=== PATIENT | female | born 1980 | race Caucasian/White ===

== ENCOUNTER 2018-10-30 16:11 | Emergency (ER) | payer OTHER, SELFPAY ==
[2018-10-30 16:12] VITALS: BP 168/131; PULSE 135; RESP 22; TEMP 36.9; O2SAT 100; BMI 32.2
--- NOTE | 2018-10-30 16:15 | ED.VISSUMM ---
- ER Visit Summary Date of Service: 10/30/18 Chief Complaint: Allergic reaction History of Present Illness: The patient is a 38 F who presents with an allergic reaction that began today just prior to arrival. Patient states she was drinking lemon water when she noted her ears for itching. Patient then noted some itching in her face and hands. Patient then noted some redness on her hands. Patient then states she felt like her voice was getting hoarse. Patient denies any difficulty breathing. Patient states her throat feels somewhat tight. Physical Examination: Vital signs are stable except for elevated blood pressure of 168/131 and a tachycardia of 135. Patient is afebrile. Patient is in no acute distress. Oromucosa is pink and moist. Oropharynx is clear. Airway is patent. Neck is supple. Trachea is midline. There is no JVD noted. Heart was regular and tachycardic. Lungs are clear and equal bilateral. Abdomen is soft and nontender. Cranial nerves II through XII are intact. There are no focal deficits noted. Skin is warm and dry. There is diffuse patchy urticaria noted. There are no vesicles or pustules noted. Emergency Department Course and Treatment: Patient was given IV fluids. Patient was given Solu-Medrol, Benadryl, and Pepcid IV. Patient states her itching and hives have improved. Patient complains of some nausea. Patient was given a dose of Zofran here. Patient was given a prescription for prednisone. Patient was also given a prescription for Zofran. Patient was instructed to take Benadryl as needed for any itching. Patient was instructed to follow-up with her primary care physician in 5 to 7 days. Patient understood and was agreeable with the plan. All questions were answered. Disposition: Discharge home Impression: Allergic reaction This note was generated with [employer] dictation software. It may contain incorrect words, spelling, and punctuation that were not noted in review of the chart prior to signing ED Disposition - Plan for ED Patient: Disposition: Home or Assisted Living Instructions: ED Allergic Reaction General Other Prescriptions: Ondansetron [Zofran Odt] 4 mg PO Q8H PRN PRN #10 tab PRN Reason: Nausea Prednisone [Deltasone] 60 mg PO DAILY #15 tab Referrals: Jeremy,Magnolia, [Primary Care Provider] -
[2018-10-30] MEDS: MethylPREDNISolone 125 MG/2 ML Vial IV (16:22)
[2018-10-30] MEDS: DiphenhydrAMINE 50 MG/ML Syringe 25 MG IV (16:22)
[2018-10-30 18:02] VITALS: BP 138/89; PULSE 99; RESP 20; O2SAT 93
[2018-10-30 19:00] VITALS: BP 154/93; PULSE 107; RESP 16; O2SAT 94
[2018-10-30 19:45] VITALS: BP 154/93; PULSE 107; RESP 16; O2SAT 94
== END 2018-10-30 19:47 | disposition home or self-care (01) ==
PROVIDERS: Emergency Provider Emergency Medicine; Family Provider Internal Medicine; PCP Internal Medicine
DX: L50.0 Allergic urticaria (principal); R11.0 Nausea; J02.9 Acute pharyngitis, unspecified; T78.40XA Allergy, unspecified, initial encounter; X58.XXXA Exposure to other specified factors, initial encounter
CPT/HCPCS: 96374; 96375; 99284; A4216; J2405; J3490

== ENCOUNTER 2019-05-28 16:55 | Outpatient (CLI) | payer OTHER, SELFPAY ==
[2019-05-20 06:44] VITALS: BMI 32.2
[2019-05-28 17:20] VITALS: BMI 32.3
--- NOTE | 2019-05-29 15:35 | OB.TRI.PN_ITS ---
Progress Notes Date of Service: 05/28/19 Progress Note: at 22w5d presented to to the ER for shortness of breath and then sent to labor and delivery due to increased blood pressure and headache. O: FHT 150 A: Shortness of breath P: 1) Patient to be seen in emergency room for shortness of breath and rule out pn eumonia
== END 2019-05-28 18:00 | disposition home or self-care (01) ==
LOC: WPOUT 17:01 → WP 17:02
PROVIDERS: Family Provider Internal Medicine; PCP Internal Medicine; Referring Provider Advanced Practice Midwife; Visit Provider Advanced Practice Midwife
DX: O26.899 Other specified pregnancy related conditions, unspecified trimester (principal); R06.02 Shortness of breath; R03.0 Elevated blood-pressure reading, without diagnosis of hypertension; R51 Headache; Z3A.00 Weeks of gestation of pregnancy not specified
CPT/HCPCS: 59050; 99218; G0378

== ENCOUNTER 2019-05-28 18:07 | Emergency (ER) | payer OTHER, SELFPAY ==
[2019-05-28 17:20] VITALS: BMI 32.3
[2019-05-28 18:08] VITALS: BP 160/95; PULSE 94; RESP 18; TEMP 36.6; O2SAT 96; BMI 32.1
--- NOTE | 2019-05-28 18:21 | ED.DCSUM_ITS ---
- ER Visit Summary Date of Service: 05/28/19 Chief Complaint: Shortness of breath and cough History of Present Illness: The patient is a 38 F who has had shortness of breath and cough for a week. At that time she tested positive for influenza B. Her shortness of breath and cough is gotten worse since then. She has been seeing her doctor yesterday put her on prednisone and azithromycin. She has been using her albuterol inhaler multiple times a day. She tried an albuterol aerosol yesterday but she states that made it worse and irritated her lungs. She is currently 22 weeks gestation. In triage her blood pressure was elevated so she went to OB triage and they monitored her there and sent her here for her medical work-up. She also has gestational diabetes. She has not had any fevers with this. Physical Examination: Vital signs reviewed. HEENT exam unremarkable. Heart is tachycardic and regular rhythm without murmurs. Lungs are clear to auscultation. Abdomen is soft and nontender. Extremities reveal no edema. Skin exam normal. Neurologic exam normal. Test Results: EKG is sinus rhythm with a rate of 90. No ST changes. White blood cell count 16.5. Potassium 5.5 with hemolysis. Troponin normal. D-dimer 0.49. Chest x-ray normal Emergency Department Course and Treatment: The patient appears in no distress. She is 96% on room air. Her work-up is fairly negative. I believe this is like ly a bronchitis causing all of the symptoms. I do not feel she needs any advanced imaging since her d-dimer was in the normal range. I will give her 1 dose of IV Solu-Medrol. With shared decision-making, the patient wishes to be treated as an outpatient does not want to stay in the hospital tonight. She has a follow-up appoint with her doctor on Sunday that she will go to. She will continue her home medications as prescribed by her PCP yesterday. Treatment Plan: [] Disposition: Discharge Impression: Bronchitis This note was generated with [email or web address] dictation software. It may contain incorrect words, spelling, and punctuation that were not noted in review of the chart prior to signing ED Disposition - Plan for ED Patient: Referrals: Magnolia Luna, [Primary Care Provider] -
--- NOTE | 2019-05-28 18:35 | RAD_ITS ---
STUDY: X-RAY CHEST REASON FOR EXAM: Female, 38 years old. Shortness of breath TECHNIQUE: PA and lateral views of the chest. COMPARISON: September 22, 2014 FINDINGS: The lungs are clear and expanded. There is no demonstrated pleural abnormality. Normal size heart. Normal mediastinum and aminta. Normal visualized pulmonary arteries. Normal visualized aortic arch and descending thoracic aorta. Normal visualized thoracic spine. Normal visualized ribs, clavicles, and shoulders. There is no demonstrated abnormality of the visualized soft tissue structures of the upper abdomen. RAD/Chest PA and Lateral IMPRESSION: Normal x-ray examination of the chest. Electronically Signed: Jamie Huang DO at 19:11 EST Tel , Service support ,
[2019-05-28 18:41] LABS: Absolute Lymphocyte Count 1.24 X10^3/uL (0.83-4.51); Absolute Neutrophil Count 14.8 X10^3/uL (2.0-7.7); Basophil# 0.02 X10^3/uL; Basophil% 0.1 % (0-1); Eosinophil# 0.02 X10^3/uL; Eosinophils% 0.1 % (0-5); Hematocrit 35.1 % (37-47); Hemoglobin 12.2 g/dL (12.0-15.0); Lymphocyte # 1.24 X10^3/ul (4.0); Lymphocyte % 7.5 % (19-41); Mean Corp Hgb Conc 34.8 g/dL (32-36); Mean Corpuscular Hgb 31.8 pg (27.0-32.0); Mean Corpuscular Volume 91.4 fL (81-99); Mean Platelet Vol. 9.8 fl (6.2-12.0); Monocyte% 1.8 % (0-10); NRBC Flagged by Analyzer 0 % (0-5); Neutrophil # 14.75 X10^3/uL (2.7-7.7); Neutrophil % 89.3 % (47-70); Platelet Count 241 K/mm3 (150-450); RBC Distribution Width CV 12.5 % (11.6-14.6); RBC Distribution Width SD 40.6 fl (35.1-43.9); Red Blood Count 3.84 M/mm3 (4.2-5.4); White Blood Count 16.5 K/mm3 (4.4-11.0)
[2019-05-28 19:00] LABS: Anion Gap 8 (5-15); BUN 5 mg/dL (7-18); BUN/Creat Ratio 9.1 RATIO (10-20); Calcium,Total 9.1 mg/dL (8.5-10.1); Chloride 110 mmol/L (98-107); Creatinine, Serum 0.55 mg/dL (0.55-1.02); D-Dimer Quantitative (DVT/PE) 0.49 FEU/ug/m (0.27-0.49); EST Glomerular Filtration Rate 132 mL/min (>60); Est Glom Filt Rate - Afr Amer 159 mL/min (>60); Estimated Creatinine Clearance 105.68 ml/min; Glucose 97 mg/dL (74-106); Potassium 5.5 mmol/L (3.5-5.1); Sodium Level 140 mmol/L (136-145)
--- NOTE | 2019-05-28 19:19 | EKG12_ITS ---
Test Reason : CHEST TIGHTNESS Blood Pressure : / mmHG Vent. Rate : 090 BPM Atrial Rate : 090 BPM P-R Int : 132 ms QRS Dur : 082 ms QT Int : 360 ms P-R-T Axes : 033 044 041 degrees QTc Int : 440 ms Normal sinus rhythm with sinus arrhythmia Normal ECG Confirmed by ROXANNE KING, FERNANDO ([id number]), field map editor MERVIN SIDDIQI ([id number]) on 05/30/2019 10:59:54 AM Referred By: TASIA Confirmed By:FERNANDO OLIVEIRA MD
--- NOTE | 2019-05-28 19:22 | ED.RN ---
NO OLD EKGS IN MUSE
--- NOTE | 2019-05-28 19:25 | ED.DEP ---
ED Disposition - Plan for ED Patient: Disposition: Home or Assisted Living Instructions: BRONCHITIS, No Antibiotic (Adult) Referrals: Magnolia Luna DO [Primary Care Provider] -
[2019-05-28] MEDS: MethylPREDNISolone 125 MG/2 ML Vial IV (19:33)
== END 2019-05-28 19:44 | disposition home or self-care (01) ==
PROVIDERS: Emergency Provider Emergency Medicine; Family Provider Internal Medicine; PCP Internal Medicine
DX: O99.512 Diseases of the respiratory system complicating pregnancy, second trimester (principal); J40 Bronchitis, not specified as acute or chronic; J45.909 Unspecified asthma, uncomplicated; O24.414 Gestational diabetes mellitus in pregnancy, insulin controlled; Z3A.22 22 weeks gestation of pregnancy
CPT/HCPCS: 71046; 80048; 84484; 85025; 85379; 93005; 96374; 99283; A4216

== ENCOUNTER 2019-08-05 10:35 | Outpatient (CLI) | payer OTHER, SELFPAY ==
[2019-08-05 11:12] VITALS: BMI 33.0
[2019-08-05 11:34] LABS: Hematocrit 33.4 % (37-47); Hemoglobin 11.5 g/dL (12.0-15.0); Mean Corp Hgb Conc 34.4 g/dL (32-36); Mean Corpuscular Hgb 30.7 pg (27.0-32.0); Mean Corpuscular Volume 89.3 fL (81-99); Mean Platelet Vol. 9.7 fl (6.2-12.0); Platelet Count 203 K/mm3 (150-450); RBC Distribution Width CV 12.5 % (11.6-14.6); RBC Distribution Width SD 40.7 fl (35.1-43.9); Red Blood Count 3.74 M/mm3 (4.2-5.4); White Blood Count 8.6 K/mm3 (4.4-11.0)
[2019-08-05 11:49] LABS: Prothrombin Time (Protime)PT. 12.9 SECONDS (11.7-14.9)
[2019-08-05 11:51] LABS: Partial Thromboplast Time 24.6 Seconds (24.1-36.2)
[2019-08-05 11:52] LABS: Protein, Urine (Random) 23.4 mg/dL (<11.9); Protein:Creat Ratio 205 mg/g CRE (0-200)
[2019-08-05 12:05] LABS: AST(SGOT) 6 U/L (15-37); Alanine Aminotransfer ALT/SGPT 10 U/L (13-56); EST Glomerular Filtration Rate 119 mL/min (>60); Est Glom Filt Rate - Afr Amer 144 mL/min (>60); Estimated Creatinine Clearance 96.87 ml/min; Uric Acid 4.3 mg/dL (2.6-6.0)
[2019-08-05] MEDS: Betamethasone/Betamethasone 30 MG/5 ML Vial 12 MG IM (12:55)
--- NOTE | 2019-08-05 20:57 | OB.TRI.NOTE ---
History of Present Illness Reason For Visit: RULE OUT PRE ECLAMPSIA Date of Service: 08/05/19 Final LICO: 09/26/19 Gestational age: 32 Weeks and 4 Days Allergies No Known Allergies Allergy (Verified 08/05/19 11:13) - Pertinent Past Medical History Medical History: Past Medical History (Last Reviewed 05/20/19 @ 06:43 by Steffanie James) Diabetes History of cholecystitis Surgical History: Past Surgical History (Last Reviewed 05/20/19 @ 06:44 by Steffanie James) History of appendectomy History of cholecystectomy Laboratory Studies: Laboratory Tests 08/05/19 08/05/19 08/05/19 Range/Units 11:15 11:15 11:15 WBC (4.4-11.0) K/mm3 RBC (4.2-5.4) M/mm3 Hgb (12.0-15.0) g/dL Hct (37-47) % MCV (81-99) fL MCH (27.0-32.0) pg MCHC (32-36) g/dL RDW Std Deviation (35.1-43.9) fl RDW Coeff of Yoli (11.6-14.6) % Plt Count (150-450) K/mm3 MPV (6.2-12.0) fl PT (11.7-14.9) SECONDS INR APTT (24.1-36.2) Seconds Creatinine 0.60 (0.55-1.02) mg/dL Estim Creat Clear Calc 96.87 ml/min Est GFR (MDRD) Af Amer 144 (>60) mL/min Est GFR (MDRD) Non-Af 119 (>60) mL/min Uric Acid Cancelled 4.3 (2.6-6.0) mg/dL AST 6 L (15-37) U/L ALT 10 L (13-56) U/L U Random Total Protein 23.4 H (<11.9) mg/dL Urine Creatinine 114.00 (NO RANGE EST.) mg/dL Protein/Creatinin Ratio 205 H (0-200) mg/g CRE 08/05/19 08/05/19 Range/Units 11:15 11:15 WBC 8.6 (4.4-11.0) K/mm3 RBC 3.74 L (4.2-5.4) M/mm3 Hgb 11.5 L (12.0-15.0) g/dL Hct 33.4 L (37-47) % MCV 89.3 (81-99) fL MCH 30.7 (27.0-32.0) pg MCHC 34.4 (32-36) g/dL RDW Std Deviation 40.7 (35.1-43.9) fl RDW Coeff of Yoli 12.5 (11.6-14.6) % Plt Count 203 (150-450) K/mm3 MPV 9.7 (6.2-12.0) fl PT 12.9 (11.7-14.9) SECONDS INR 1.0 APTT 24.6 (24.1-36.2) Seconds Creatinine (0.55-1.02) mg/dL Estim Creat Clear Calc ml/min Est GFR (MDRD) Af Amer (>60) mL/min Est GFR (MDRD) Non-Af (>60) mL/min Uric Acid (2.6-6.0) mg/dL AST (15-37) U/L ALT (13-56) U/L U Random Total Protein (<11.9) mg/dL Urine Creatinine (NO RANGE EST.) mg/dL Protein/Creatinin Ratio (0-200) mg/g CRE NST - FHR Rate Baby A Baseline: 145 Variability:: Moderate Accelerations:: 15 x 15 Decelerations:: Variable NST Reactive:: Yes Uterine Activity:: Irritability Impression/Plan Reactive NST for elevated BP in
== END 2019-08-05 13:15 | disposition home or self-care (01) ==
LOC: WPOUT 10:45 → WP 10:46
PROVIDERS: PCP Internal Medicine; Referring Provider Obstetrics & Gynecology; Visit Provider Obstetrics & Gynecology
DX: O26.893 Other specified pregnancy related conditions, third trimester (principal); R03.0 Elevated blood-pressure reading, without diagnosis of hypertension; O76 Abnormality in fetal heart rate and rhythm complicating labor and delivery; O24.913 Unspecified diabetes mellitus in pregnancy, third trimester; Z79.4 Long term (current) use of insulin; Z3A.32 32 weeks gestation of pregnancy
CPT/HCPCS: 36415; 59025; 59050; 82565; 82570; 84156; 84450; 84460; 84550; 85027; 85610; 85730; 96372; 99218; G0378; J0702

== ENCOUNTER 2019-08-06 12:16 | Outpatient (CLI) | payer OTHER, SELFPAY ==
[2019-08-05 11:12] VITALS: BMI 33.0
[2019-08-06 12:23] VITALS: BMI 33.5
[2019-08-06] MEDS: Betamethasone/Betamethasone 30 MG/5 ML Vial 12 MG IM (12:27)
--- NOTE | 2019-08-16 09:04 | OB.TRI.NOTE ---
History of Present Illness Reason For Visit: INJECTION Allergies No Known Allergies Allergy (Verified 08/06/19 12:25) - Pertinent Past Medical History Medical History: Past Medical History (Last Reviewed 05/20/19 @ 06:43 by Steffanie James) Diabetes History of cholecystitis Surgical History: Past Surgical History (Last Reviewed 05/20/19 @ 06:44 by Steffanie James) History of appendectomy History of cholecystectomy Impression/Plan Visit for betamethasone injection for elevated BP in
== END 2019-08-06 12:30 | disposition home or self-care (01) ==
LOC: LAB 12:17 → WP 12:18
PROVIDERS: PCP Internal Medicine; Referring Provider Obstetrics & Gynecology; Visit Provider Obstetrics & Gynecology
DX: O26.893 Other specified pregnancy related conditions, third trimester (principal); R03.0 Elevated blood-pressure reading, without diagnosis of hypertension; O24.919 Unspecified diabetes mellitus in pregnancy, unspecified trimester; Z3A.00 Weeks of gestation of pregnancy not specified
CPT/HCPCS: 96372; 99218; G0378; J0702

== ENCOUNTER 2019-08-25 14:20 | Outpatient (CLI) | payer OTHER, SELFPAY ==
[2019-08-25 14:45] VITALS: BMI 33.0
--- NOTE | 2019-08-25 19:08 | OB.TRI.NOTE ---
History of Present Illness Was patient seen by the physician?: No Reason For Visit: RULE OUT LABOR Date of Service: 08/25/19 Final LICO: 09/26/19 Gestational age: 35 Weeks and 3 Days Allergies No Known Allergies Allergy (Verified 08/25/19 15:19) - Pertinent Past Medical History Medical History: Past Medical History (Last Reviewed 05/20/19 @ 06:43 by Steffanie James) Diabetes History of cholecystitis Surgical History: Past Surgical History (Last Reviewed 05/20/19 @ 06:44 by Steffanie James) History of appendectomy History of cholecystectomy NST - FHR Rate Baby A Baseline: 145 Variability:: Moderate Accelerations:: 15 x 15 Decelerations:: Variable NST Reactive:: Yes Uterine Activity:: Irregular Impression/Plan Reactive NST for threatened PTL
== END 2019-08-25 17:40 | disposition home or self-care (01) ==
LOC: WPOUT 14:52 → WP 14:53 → OBT 15:44
PROVIDERS: PCP Internal Medicine; Referring Provider Obstetrics & Gynecology; Visit Provider Obstetrics & Gynecology
DX: O60.03 Preterm labor without delivery, third trimester (principal); O24.913 Unspecified diabetes mellitus in pregnancy, third trimester; O36.8330 Maternal care for abnormalities of the fetal heart rate or rhythm, third trimester, not applicable or unspecified; Z3A.35 35 weeks gestation of pregnancy; Z79.4 Long term (current) use of insulin
CPT/HCPCS: 59025; 59050; 99218; G0378

== ENCOUNTER 2019-09-05 07:05 | Inpatient (IN) | payer OTHER, SELFPAY ==
[2019-08-25 16:11] VITALS: BP 132/81; PULSE 95; TEMP 98.7
[2019-09-05] VITALS (51 sets, daily range): BP systolic 113–179; BP diastolic 11–105; PULSE 85–202; RESP 18; TEMP 36.4–37.3; O2SAT 81–100; BMI 33.6
--- NOTE | 2019-09-05 08:12 | HP.PCM_ITS ---
History Date of Admission: 09/05/19 Final LICO: 09/26/19 Gestational age: 37 Weeks and 0 Days History of this : This is a 38 year-old, G 6 para 2-1-2-3 at 37 weeks gestation-here for induction of labor due to advanced maternal age, polyhydramnios, GDM A2 to on insulin uncontrolled, GHTN Medical History: Medical History (Last Reviewed 05/20/19 @ 06:43 by Steffanie James) Diabetes E11.9 History of cholecystitis Z87.19 Surgical History: Surgical History (Last Reviewed 05/20/19 @ 06:44 by Steffanie James) History of appendectomy Z90.49 History of cholecystectomy Z90.49 Allergies Sulfa (Sulfonamide Antibiotics) Adverse Reaction (Verified 09/05/19 07:50) Rash Home Medications: Home Medications Buspirone HCl 25 mg PO DAILY 10/30/18 Citalopram [Celexa] 30 mg PO DAILY 10/30/18 aspirin 81 mg chewable tablet 81 mg PO DAILY 05/20/19 insulin syringe-needle U-100 0.3 mL 31 gauge x 15/64 See Rx Instructions .ROUTE .MEDSUPPLY #30 ea 05/20/19 Insulin NPH Human Isophane [Novolin N] 25 units SUBCUT BID 08/25/19 Smoking Status: Never smoker Alcohol: None Number of Fetus(es): 1 NST - FHR Rate Baby A Baseline: 140 Variability:: Moderate Accelerations:: 15 x 15 Decelerations:: None NST Reactive:: Yes FHR Category:: Category I Uterine Activity:: irregular History Past Pregnancies: Past Pregnancies Delivery Date Name GA/ Weeks Outcome Route Wt Sex Labor Length Anesthesia Delivery Location Provider FOB Labs: GBS neg Expected Infant Delivery Method: Review of Systems Constitutional: Denies: Anorexia Eyes: Denies: Blurred vision, Pain HEENT: Denies: Head Aches, Visual Changes Cardiovascular: Denies: Chest Pain Physical Exam General: Alert, Oriented x3 Abdomen: Soft, Non Tender, - - gravid. NO RUQ pain Neurological: Cranial nerves II-XII grossly intact LEVEL DESIGNER: Normal external genitalia Estimated gestational size: Appropriate for gestational size Presentation: Cephalic Cervix Dilation (cm): 3 Station: -2 Effacement (%): 80 Assessment/Plan All Active Problems (Last Reviewed 05/20/19 @ 06:43 by Steffanie James) Influenza B (Acute) This is a 38 year-old, @ 37 weeks, IOL for AMA, GDMA2 uncontrolled, Polyhydramnios, Gest HTN 1) Admit to L&D 2) monitor Fhr/toco 3) successful anticipated - pt counseled on risks and consent previously signed 4) epidural 5) pitocin. 6) monitor BPs- PRE E labs sent 7) monitor BS- start insulin drip if indicated
[2019-09-05] MEDS: Lactated Ringers 1,000 ML 50 ML IV (08:34)
[2019-09-05] MEDS: Oxytocin 30 units/NS 500 ml 30 UNITS/500 ML IV.SOLN IV (08:55)
[2019-09-05 08:57] LABS: Absolute Lymphocyte Count 1.87 X10^3/uL (0.83-4.51); Absolute Neutrophil Count 7.2 X10^3/uL (2.0-7.7); Basophil# 0.03 X10^3/uL; Basophil% 0.3 % (0-1); Eosinophil# 0.05 X10^3/uL; Eosinophils% 0.5 % (0-5); Hematocrit 32.5 % (37-47); Hemoglobin 10.8 g/dL (12.0-15.0); Lymphocyte # 1.87 X10^3/ul (4.0); Lymphocyte % 19.2 % (19-41); Mean Corp Hgb Conc 33.2 g/dL (32-36); Mean Corpuscular Hgb 29.6 pg (27.0-32.0); Mean Platelet Vol. 10.4 fl (6.2-12.0); Monocyte% 6.2 % (0-10); NRBC Flagged by Analyzer 0 % (0-5); Neutrophil # 7.17 X10^3/uL (2.7-7.7); Neutrophil % 73.5 % (47-70); Platelet Count 211 K/mm3 (150-450); RBC Distribution Width CV 13.1 % (11.6-14.6); RBC Distribution Width SD 42.1 fl (35.1-43.9); Red Blood Count 3.65 M/mm3 (4.2-5.4); White Blood Count 9.8 K/mm3 (4.4-11.0)
[2019-09-05 09:03] LABS: Partial Thromboplast Time 24.2 Seconds (24.1-36.2); Prothrombin Time (Protime)PT. 12.7 SECONDS (11.7-14.9)
[2019-09-05] MEDS: Lactated Ringers 500 ML 999 ML IV (09:09)
[2019-09-05 09:13] LABS: AST(SGOT) 10 U/L (15-37); Alanine Aminotransfer ALT/SGPT 9 U/L (13-56); Creatinine, Serum 0.71 mg/dL (0.55-1.02); EST Glomerular Filtration Rate 98 mL/min (>60); Est Glom Filt Rate - Afr Amer 118 mL/min (>60); Estimated Creatinine Clearance 81.86 ml/min; Uric Acid 5.1 mg/dL (2.6-6.0)
[2019-09-05 09:35] LABS: Bedside Glucose 102 mg/dL (70-110)
[2019-09-05] MEDS: fentaNYL-bupivacaine (epidural) 100 ML BAG EPIDURAL ×2 (10:12→14:18)
[2019-09-05 10:51] LABS: Protein, Urine (Random) 8.8 mg/dL (<11.9); Protein:Creat Ratio 135 mg/g CRE (0-200)
[2019-09-05 11:55] LABS: Bedside Glucose 81 mg/dL (70-110)
[2019-09-05] MEDS: 0.9% Saline Lock 10 ML Syringe IV (12:03)
[2019-09-05] MEDS: Ondansetron 4 MG/2 ML Vial IV (12:03)
[2019-09-05 12:06] LABS: Bedside Glucose 70 mg/dL (70-110)
--- NOTE | 2019-09-05 12:40 | PCM.PN.BLA ---
Progress Note pt seen at bedside, resting comfortably with Epidural in place. VE: 6/80/-2, continue Pitocin. Anticipate STROKE Vital Signs/Narrative: Vital Signs Temp Pulse Pulse Ox 09/05/19 11:56 97.7 F L 116 H 98 09/05/19 11:19 101 H 98 09/05/19 11:14 120 H 97 09/05/19 11:09 115 H 98 09/05/19 11:04 105 H 99 09/05/19 10:59 142 H 100 09/05/19 10:54 100 100 09/05/19 10:53 98.3 F 126 H 09/05/19 10:32 97.9 F 113 H 09/05/19 10:29 134 H 98 09/05/19 10:28 106 H 09/05/19 10:24 110 H 98 09/05/19 10:22 118 H 09/05/19 10:19 116 H 99 09/05/19 10:18 114 H 09/05/19 10:14 109 H 98 09/05/19 10:12 108 H 09/05/19 10:09 108 H 96 09/05/19 10:07 112 H 09/05/19 10:03 108 H 99 09/05/19 10:02 105 H 09/05/19 09:58 104 H 99 09/05/19 09:57 93 09/05/19 09:53 100 98 09/05/19 09:48 96 98 09/05/19 09:47 96 09/05/19 09:43 96 99 09/05/19 09:42 101 H 09/05/19 09:38 95 99 09/05/19 09:33 95 99 09/05/19 09:07 100 09/05/19 08:42 98.8 F 104 H 97
[2019-09-05 13:16] LABS: Bedside Glucose 59 mg/dL (70-110)
[2019-09-05 13:35] LABS: Bedside Glucose 81 mg/dL (70-110)
[2019-09-05] MEDS: Oxytocin 30 units/NS 500 ml 30 UNITS/500 ML IV.SOLN 334 UNITS IV (14:38)
--- NOTE | 2019-09-05 14:46 | PCM.OPRPT ---
Vaginal Delivery Maternal Presentation: Medically Indicated Induction Method of Induction: Pitocin, Amniotomy Medical Reason for Induction: Gestational Hypertension, - - GDMA2, AMA, Polyhydramnios Amniotic Membrane Rupture Type: Artificial Amniotic Fluid Description: Clear Final LICO: 09/26/19 Gestational age: 37 Weeks and 0 Days Date of Procedure: 09/05/19 Pre-Operative Diagnosis: Term gestation, GDMA2, Polyhydramnios, Gest HTN Post-Operative Diagnosis: same, live female Surgery/ Procedure Performed: Spontaneous Vaginal Delivery Type of Anesthesia: Epidural Description of Procedure: successful - of live female born without complication. 's head delivered then with gentle downward traction anterior shoulder was delivered without complication followed by the rest of infant's body. The infant was placed on the mother's chest for immediate skin the skin. Delayed cord clamping was performed. Placenta delivered intact and without complication. First-degree perineal laceration was noted and repaired with 3-0 rapide suture. Presentation: Vertex Placental Delivery Description: Spontaneous Cord Vessel Description: 3 Vessels Cord Entanglement: None Estimated Blood Loss: 200 Infant A gender: Female (1 minute): 8 (5 minute): 9 Episiotomy Description: None Laceration: Perineal Extension/lac - repaired with 3-0 rapide, 1st degree Medications given after delivery: IV Pitocin Complications: None
[2019-09-05] MEDS: Ibuprofen 600 MG Tablet PO ×2 (16:04→22:55)
[2019-09-05] MEDS: Senna/Docusate Sodium 1 Tablet PO (16:04)
[2019-09-05 16:56] LABS: Bedside Glucose 61 mg/dL (70-110)
[2019-09-05 17:21] LABS: Bedside Glucose 78 mg/dL (70-110)
[2019-09-05] MEDS: Acetaminophen 500 MG Tablet 1000 MG PO (18:55)
[2019-09-05 19:56] LABS: HIV - WCH Non-Reactive (Nonreactive)
[2019-09-05] MEDS: oxyCODONE 5 MG Tablet PO (20:35)
[2019-09-05] MEDS: busPIRone 5 MG Tablet 25 MG PO (22:41)
[2019-09-05] MEDS: Citalopram 20 MG Tablet 30 MG PO (22:42)
[2019-09-06] VITALS (7 sets, daily range): BP systolic 112–154; BP diastolic 63–91; PULSE 84–111; RESP 16–18; TEMP 36.6–37.3; O2SAT 95–96
[2019-09-06] MEDS: oxyCODONE 5 MG Tablet PO ×5 (01:08→23:48)
[2019-09-06] MEDS: Acetaminophen 500 MG Tablet 1000 MG PO ×2 (05:16→15:28)
[2019-09-06] MEDS: Labetalol 200 MG Tablet PO ×2 (06:49→18:28)
[2019-09-06] MEDS: Ibuprofen 600 MG Tablet PO ×3 (06:52→20:36)
[2019-09-06 07:06] LABS: Bedside Glucose 93 mg/dL (70-110)
--- NOTE | 2019-09-06 09:50 | PN.OBGYN_ITS ---
Subjective: Doing well per patient and nursing staff. Increased pelvic cramping, especially with . Back pain, using ice. Up out of bed to bathroom but has not eaten breakfast this am. BP mildly elevated, started on labetalol by this am. Has a little bit of dizziness this morning. Denies any headache, visual changes, chest pain, shortness of breath, increased vaginal bleeding or leg pain. . - Physical Exam Vitals/I&O's: Vital Signs Temp Pulse Resp BP Pulse Ox 97.8 F 84 16 147/91 H 96 09/06/19 05:07 09/06/19 06:48 09/06/19 05:07 09/06/19 06:48 09/06/19 05:07 Oxygen Delivery Method Room Air Weight: 178 lb 3.2 oz Body Mass Index (BMI) 33.6 Intake and Output for Last 24 Hours 09/04/19 09/05/19 09/06/19 23:59 23:59 23:59 Intake Total 1710.43 / 1710.43 Output Total 1100 / 1100 Balance 610.43 / 610.43 General: Alert, Oriented x3, Cooperative HEENT: Atraumatic, Normocephalic Neck: Trachea Midline Lungs: Clear to auscultation, Normal air movement, No rhonchi, No wheeze Cardiovascular: Regular rate, Regular Rhythm, No murmurs Abdomen: Bowel Sounds Present, Soft - Appropriately tender 3 below U Extremities: No edema - Megan's negative Neurological: Deep Tendon Reflexes 2+/4 and Symmetrical - No clonus Psych/Mental Status: Normal Affect, Appropriate Laboratory Results 09/05/19 08:30: Blood Type A POSITIVE, Antibody Screen NEGATIVE 09/05/19 10:30: U Random Total Protein 8.8, Urine Creatinine 65.40, Protein/Creatinin Ratio 135 09/05/19 10:36: POC Glucose 81 09/05/19 11:55: POC Glucose 70 09/05/19 12:59: POC Glucose 59 L 09/05/19 13:28: POC Glucose 81 09/05/19 16:45: POC Glucose 61 L 09/05/19 17:09: POC Glucose 78 09/05/19 18:50: HIV 1&2 Antibody Non-Reactive 09/06/19 06:56: POC Glucose 93 Current Medications Acetaminophen (Tylenol) 1,000 mg PO Q8H PRN PRN PRN Reason: Pain Score 1-3/10 Last Admin: 09/06/19 05:16 Dose: 1,000 mg Documented by: Bisacodyl (Dulcolax) 10 mg RECTAL UD PRN PRN Reason: If no BM Buspirone HCl (Buspar) 25 mg PO DAILY@2200 LIZZETTE Last Admin: 09/05/19 22:41 Dose: 25 mg Documented by: Citalopram Hydrobromide (Celexa) 30 mg PO DAILY@2200 LIZZETTE Dibucaine (Dibucaine) 1 applic TOPICAL TID PRN PRN; Protocol PRN Reason: Discomfort Hydrocortisone (Hytone) 1 applic TOPICAL TID PRN PRN; Protocol PRN Reason: Discomfort Ibuprofen (Motrin) 600 mg PO Q6H PRN PRN PRN Reason: Pain Score 1-3/10 Last Admin: 09/06/19 06:52 Dose: 600 mg Documented by: Labetalol HCl (Trandate) 200 mg PO Q12H [facility] Methylergonovine Maleate (Methergine) 0.2 mg IM X1 PRN PRN Reason: Excess bleeding/uterine atony Ondansetron HCl (Zofran) 4 mg IV Q4H PRN PRN PRN Reason: Nausea Oxycodone HCl (Oxyir) 5 - 10 mg PO Q4H PRN PRN PRN Reason: Pain Score 4-10/10 Last Admin: 09/06/19 08:51 Dose: 10 mg Documented by: Senna/Docusate Sodium (Senokot-S, Monika-Colace) 1 - 2 tablet PO DAILY PRN PRN PRN Reason: Constipation Last Admin: 09/05/19 16:04 Dose: 2 tablet Documented by: Simethicone (Mylicon) 80 mg PO PCHS PRN PRN Reason: Indigestion/Stomach pain Sodium Chloride () 5 - 15 ml IV UD PRN PRN Reason: SALINE FLUSH Medical Necessity - Tobacco Use Smoking Status: Former smoker Assessment/Plan All Active Problems (Last Reviewed 05/20/19 @ 06:43 by Steffanie James) Influenza B (Acute) A:PPD #1 Gestational HTN GDM Class A2 P: 1) Routine care 2) Reviewed course of uterine cramping, Kpad for relief. Taking Oxycodone, some relief. 3) Back pain, reviewed ice and heat rotation for pain, discussed getting up out of bed and sitting in chair 4) Labetalol started by for elevated BP, reviewed side effects. No signs of preeclampsia at this time. 5) Planning D/C home tomorrow.
[2019-09-06] MEDS: Senna/Docusate Sodium 1 Tablet PO (10:51)
--- NOTE | 2019-09-06 14:40 | CASEMGMT ---
Social Work Brief Assessment - Labor and Delivery Unit Refer documentation below for further details. Date of Referral/Notification: 09/06/2019 Time of Referral: 01:25 Reason for Referral: HISTORY OF ANXIETY AND DEPRESSION Date of Intervention: 09/06/2019 Time of Intervention: 14:40 Informant: Medical record and mother of baby (MOB) Assessment: MET WITH MOB AND FOB IN ROOM. INTRODUCED ROLE AND REASON FOR REFERRAL. MOB DISCUSSED MENTAL HEALTH HISTORY. MOB REPORTS IS WELL MANAGED ON MEDICATION FOR DEPRESSION AND ANXIETY AND FOLLOWS CLOSELY WITH DR. MCDANIELS. MOB REPORTS PARTICIPATED IN COUNSELING IN THE PAST AND IF NEEDED WOULD RETURN. MOB AND FOB REPORT HAVE ALL NEEDS MET FOR BABY GIRL, TATIANNA. MOB HAS GOOD SUPPORT FROM FOB AND FAMILY. PROVIDED EDUCATIONAL RESOURCES ON DEPRESSION AND REVIEWED WITH MOB. MOB DENIES ANY NEEDS UPON DISCHARGE. UPDATED MOB?S NURSE, FAIZAN. NURSING VOICES NO CONCERNS. Plan: HOME WITH RESOURCES PROVIDED. No further needs requested or indicated. -Mary Anne Salmeron, DEMO SPECIALIST, BROADCASTING EQUIPMENT MECHANIC
[2019-09-06] MEDS: Citalopram 20 MG Tablet 30 MG PO (22:16)
[2019-09-06] MEDS: busPIRone 5 MG Tablet 25 MG PO (22:16)
[2019-09-07 03:25] VITALS: BP 128/75; PULSE 88; RESP 16; TEMP 36.9; O2SAT 95
[2019-09-07] MEDS: Ibuprofen 600 MG Tablet PO ×2 (04:00→11:27)
[2019-09-07 06:24] VITALS: BP 141/74; PULSE 84
[2019-09-07] MEDS: Labetalol 200 MG Tablet PO (06:24)
[2019-09-07] MEDS: oxyCODONE 5 MG Tablet PO ×2 (07:58→12:03)
[2019-09-07] MEDS: Senna/Docusate Sodium 1 Tablet PO (07:59)
[2019-09-07 08:00] VITALS: BP 148/82; PULSE 85; RESP 18; TEMP 37.1
--- NOTE | 2019-09-07 10:51 | PN.OBGYN_ITS ---
Subjective: Doing well per patient and nursing staff. Ambulating and taking PO without difficulty. Voiding without difficulty. Feeling better today, pain more c ontrolled. . Denies any headache, visual changes, chest pain, shortness of breath,leg pain or increased vaginal bleeding. Planning D/C home today. - Physical Exam Vitals/I&O's: Vital Signs Temp Pulse Resp BP Pulse Ox 98.8 F 85 18 148/82 H 95 09/07/19 08:00 09/07/19 08:00 09/07/19 08:00 09/07/19 08:00 09/07/19 03:25 Oxygen Delivery Method Room Air Weight: 178 lb 3.2 oz Body Mass Index (BMI) 33.6 Intake and Output for Last 24 Hours 09/05/19 09/06/19 09/08/19 23:59 23:59 00:59 Intake Total 1710.43 / 1710.43 Output Total 1100 / 1100 Balance 610.43 / 610.43 General: Alert, Oriented x3, Cooperative HEENT: Atraumatic, Normocephalic Neck: Trachea Midline Lungs: Clear to auscultation, Normal air movement, No rhonchi, No wheeze Cardiovascular: Regular rate, Regular Rhythm, No murmurs Abdomen: Bowel Sounds Present, Soft - Fundus firm 3 below U, appopriately tender Extremities: No edema Neurological: Deep Tendon Reflexes 2+/4 and Symmetrical - No clonus. Megan's negative bilaterally Psych/Mental Status: Normal Affect, Appropriate Current Medications Acetaminophen (Tylenol) 1,000 mg PO Q8H PRN PRN PRN Reason: Pain Score 1-3/10 Last Admin: 09/06/19 15:28 Dose: 1,000 mg Documented by: Bisacodyl (Dulcolax) 10 mg RECTAL UD PRN PRN Reason: If no BM Buspirone HCl (Buspar) 25 mg PO DAILY@2200 LIZZETTE Last Admin: 09/06/19 22:16 Dose: 25 mg Documented by: Citalopram Hydrobromide (Celexa) 30 mg PO DAILY@2200 LIZZETTE Last Admin: 09/06/19 22:16 Dose: 30 mg Documented by: Dibucaine (Dibucaine) 1 applic TOPICAL TID PRN PRN; Protocol PRN Reason: Discomfort Hydrocortisone (Hytone) 1 applic TOPICAL TID PRN PRN; Protocol PRN Reason: Discomfort Ibuprofen (Motrin) 600 mg PO Q6H PRN PRN PRN Reason: Pain Score 1-3/10 Last Admin: 09/07/19 04:00 Dose: 600 mg Documented by: Labetalol HCl (Trandate) 200 mg PO Q12H LIZZETTE Last Admin: 09/07/19 06:24 Dose: 200 mg Documented by: Methylergonovine Maleate (Methergine) 0.2 mg IM X1 PRN PRN Reason: Excess bleeding/uterine atony Ondansetron HCl (Zofran) 4 mg IV Q4H PRN PRN PRN Reason: Nausea Oxycodone HCl (Oxyir) 5 - 10 mg PO Q4H PRN PRN PRN Reason: Pain Score 4-10/10 Last Admin: 09/07/19 07:58 Dose: 5 mg Documented by: Senna/Docusate Sodium (Senokot-S, Monika-Colace) 1 - 2 tablet PO DAILY PRN PRN PRN Reason: Constipation Last Admin: 09/07/19 07:59 Dose: 2 tablet Documented by: Simethicone (Mylicon) 80 mg PO PCHS PRN PRN Reason: Indigestion/Stomach pain Sodium Chloride () 5 - 15 ml IV UD PRN PRN Reason: SALINE FLUSH Medical Necessity - Tobacco Use Smoking Status: Former smoker Assessment/Plan All Active Problems (Last Reviewed 05/20/19 @ 06:43 by Steffanie James) Influenza B (Acute) A:PPD #2 Gestational HTN P: 1) Routine care and support 2) BP mildly elevated, continue Labetalol 200mg PO BID. Preeclampsia signs and symptoms reviewed. To follow up in 2 days for blood pressure check in office. Consulted and agrees with plan. 3) Pain management 4) Hemodynamically stable. 5) Discharge home
--- NOTE | 2019-09-07 11:32 | DCINST_ITS ---
Discharge Diet: No Restrictions Discharge Activity: Return to Normal Activity, May not drive while taking narcotic pain medications., May Shower, May Take a Tub Bath May resume sexual activity in: 4-6 weeks Weight Bearing Status: Full weight bearing Additional Activity Instructions:: Nothing in the vagina for 4-6 weeks. You may return to work/school in 6 weeks. Call your doctor if your incision/area has: Continuous Slow Oozing, Sudden Increased Bleeding, Increased Pain/ Swelling, Increased Redness, Foul Smelling Discharge Call your doctor if you observe: Fever of 101 or Higher, Inability to urinate, Inability to have a bowel movement, Using more than one pad per hour, Shortness of breath, Chest pain, Increased palpitations (irregular heartbeat), Calf discomfort, Uncontrolled pain Additional Instructions: If you experience any of the following, contact your healthcare provider. * Bleeding that soaks a pad every hour for 2 hours * Fever 100.4 or higher * Unrelieved incision or abdominal pain * Swelling, redness, discharge or bleeding from your incision or episiotomy site * Your incision begins to separate * Problems urinating (including inability to urinate or burning while urinating). * Visual changes * Severe headache * Flu-like symptoms * Pain or redness in one of both of your breasts * Pain, warmth, tenderness or swelling in your legs, especially the calf area * Frequent nausea and vomiting * Symptoms of depression or anxiety If you experience any of the following, call 911 or go to the nearest Emergency Room. * Chest pain * Problems breathing * Seizure activity * Partial or complete paralysis of a body part, slurred speech, weakness or drooping of the face, or a sudden inability to walk or hold your balance Allergies/Adverse Reactions: Allergies Sulfa (Sulfonamide Antibiotics) Allergy (Verified 09/05/19 15:06) Rash Medications to take at Discharge Buspirone HCl 25 mg PO DAILY 10/30/18 Citalopram [Celexa] 30 mg PO DAILY 10/30/18 Ibuprofen [Motrin] 600 mg PO Q6H PRN PRN #30 tablet 09/07/19 The following prescriptions were given: Ibuprofen [Motrin] 600 mg PO Q6H PRN PRN #30 tablet PRN Reason: Pain Score 1-3/10 Please Follow Up With: Susana Cadena MD When: Call to make an appointment with your doctor in 2 days for blood pressure check with physician and in 6 weeks. Please call office to make appointment Primary Care Physician: Magnolia Luna DO [Primary Care Provider] - Test Results: Test results from this visit will be discussed in further detail at your follow- up appointment, if applicable.
[2019-09-07 13:30] VITALS: BP 142/94; PULSE 93; RESP 16; TEMP 36.6
== END 2019-09-07 13:55 | disposition home or self-care (01) | DRG 807 ==
PROVIDERS: Pediatrics; Admitting Provider Obstetrics & Gynecology; PCP Internal Medicine; Referring Provider Obstetrics & Gynecology; Visit Provider Obstetrics & Gynecology
DX: O34.219 Maternal care for unspecified type scar from previous cesarean delivery (principal); Z37.0 Single live birth; N85.8 Other specified noninflammatory disorders of uterus; Z3A.37 37 weeks gestation of pregnancy; O40.9XX0 Polyhydramnios, unspecified trimester, not applicable or unspecified; O13.4 Gestational [pregnancy-induced] hypertension without significant proteinuria, complicating childbirth; O24.424 Gestational diabetes mellitus in childbirth, insulin controlled; O70.0 First degree perineal laceration during delivery; Z87.891 Personal history of nicotine dependence
CPT/HCPCS: 59050; 82565; 82570; 82962; 84156; 84450; 84460; 84550; 85025; 85610; 85730; 86703; 86850; 86900; 86901; 99218; J7120; A4216; G0378; J2405; J3490

== ENCOUNTER → 2020-04-19 13:59 | Outpatient (CLI) | payer OTHER, SELFPAY ==
[2019-09-05 07:43] VITALS: BMI 33.6
--- NOTE | 2020-04-19 14:01 | ECHOD_ITS ---
Reason For Study: ABN EKG Procedure This was a 2D Doppler, Color Flow transthoracic echocardiogram. The study was technically difficult. Exam performed in department. Left Ventricle Normal LV size. Left ventricular systolic function is normal. The estimated ejection fraction is 60 %. No evidence for diastolic dysfunction. No regional wall motion abnormalities noted. Right Ventricle Normal RV size. Normal systolic function. Atria Normal left atrium. Normal right atrium. No doppler evidence for ASD. Mitral Valve There is no mitral annular calcification. Normal mitral valve. Trivial mitral valve insufficiency. Tricuspid Valve Normal tricuspid valve. Trivial tricuspid valve insufficiency. Unable to estimate RV systolic pressure/pulmonary artery pressure due to technically difficult study. Aortic Valve The aortic valve is not well visualized. Pulmonic Valve The pulmonic valve is not well visualized. Great Vessels Normal sized aortic root. Pericardium/Pleural No pericardial effusion. MMode/2D Measurements & Calculations LVIDd: 4.4 cm IVSd: 0.72 cm Ao root diam: 2.8 cm LVIDs: 3.0 cm LVPWd: 0.90 cm RVDd: 2.6 cm FS: 32.2 % LAV(MOD-bp): 31.2 ml LA A4 area: 12.0 cm2 LA dimension(2D): 3.0 cm LAV(MOD-bp) Indexed: 17.7 ml/m2 LAV(MOD-sp2): 32.6 ml LAV(MOD-sp4): 25.2 ml RA A4 area: 12.1 cm2 Doppler Measurements & Calculations MV E max wilfredo: 72.8 cm/sec Lat Peak E' Wilfredo: 14.5 cm/sec Med Peak E' Wilfredo: 15.2 cm/sec MV A max wilfredo: 46.9 cm/sec E/E' lat: 5.0 E/E' med: 4.8 MV E/A: 1.6 Ao V2 max: 131.9 cm/sec LV V1 max: 103.7 cm/sec PA V2 max: 95.3 cm/sec Ao max P.0 mmHg LV V1 max P.3 mmHg Interpretation Summary The study was technically difficult. Left ventricular systolic function is normal. The estimated ejection fraction is 60 %. Trivial mitral valve insufficiency. Trivial tricuspid valve insufficiency. Unable to estimate RV systolic pressure/pulmonary artery pressure due to technically difficult study. No evidence for diastolic dysfunction. Ordering Physician: Magnolia Luna Referring Physician: Magnolia Luna Performed By: Aishwarya Baumann, BILL, RVT
== END ==
PROVIDERS: PCP Internal Medicine; Referring Provider Internal Medicine; Visit Provider Internal Medicine
DX: R94.31 Abnormal electrocardiogram [ECG] [EKG] (principal)
CPT/HCPCS: 93306

== ENCOUNTER 2021-07-14 14:20 | Emergency (ER) | payer OTHER, SELFPAY ==
[2021-07-14 14:22] VITALS: BP 180/110; PULSE 91; RESP 14; TEMP 36.6; O2SAT 95; BMI 34.5
--- NOTE | 2021-07-14 15:02 | EDS_ITS ---
HPI History of Present Illness Chief Complaint: Allergic Reaction Informant: patient Onset/Context/Timing Onset: Today Context: Sudden Onset Timing: Continuous Quality: Hives Location: Generalized Worsened by: Nothing Relieved by: Nothing Narrative Narrative: Patient presents with an allergic reaction that began today. Patient states that she cut a lemon and squeeze it into a glass of water. Patient states that after she drank this, she started breaking out into hives. Patient states she felt like her tongue was starting to swell up. Patient took 2 [id number] Benadryl tablets prior to arrival. Patient states she has had emily in the past without any difficulty. Patient states she did have 1 other episode in the past where she cut a lemon, squeezed into her water and drink it then developed hives. Patient states she has done this several times since the last time she developed hives from this without any reaction. Patient states she is currently on Cipro for urinary tract infection. Patient denies any allergies to Cipro. Patient admits to some mild shortness of breath but denies any difficulty swallowing. [facility] Medical History Diabetes History of cholecystitis Home Medications cephalexin 500 mg PO Q6 #12 capsule 07/14/21 [Rx Last Taken Unknown] prednisone 60 mg PO DAILY #12 tablet 07/14/21 [Rx Last Taken Unknown] Allergy/AdvReac Type Severity Reaction Status Date / Time Sulfa (Sulfonamide Allergy Rash Verified 07/14/21 14:25 Antibiotics) Surgical History History of appendectomy History of cholecystectomy Social History Smoking Status: Former smoker alcohol intake: never ROS ROS ED Constitutional Constitutional ED: Denies chills or fever(s) Eyes Eyes: Denies blurry vision or change in vision ENT ENT ED: Denies rhinorrhea or sore throat Cardiovascular Cardiovascular: Reports racing heartbeat; Denies chest pain or palpitations Respiratory/Chest Respiratory/Chest: Reports dyspnea; Denies cough Gastrointestinal Gastrointestinal: Denies nausea or vomiting Genitourinary Genitourinary ED: Denies dysuria or hematuria Musculoskeletal Musculoskeletal: Denies back pain or neck pain Integumentary Reports rash; Denies abscess Neurologic Neurologic: Denies headache(s) or weakness Allergic/Immunologic Allergic/Immunologic ED: Reports mouth swelling, tongue swelling and urticaria EXAM Physical Exam Const Vital Signs: 07/14/21 14:22 07/14/21 15:52 07/14/21 16:03 Temperature 97.9 F Temperature Source Temporal Pulse Rate 91 87 92 Respiratory Rate 14 14 19 H Blood Pressure 180/110 H 135/97 H Blood Pressure Mean 133 109 Pulse Ox 95 97 97 Oxygen Delivery Method Room Air Room Air Room Air Positive well nourished and well developed General Appearance ED: well developed HEENT Reports moist mucous membranes HEENT Narrative: Oropharynx is clear. Airway is patent. There is no edema of the oropharynx. Neck supple and no JVD Resp normal respiratory effort and clear to auscultation bilaterally Cardio regular rate, regular rhythm and no murmurs GI normal to inspection, nondistended, normoactive bowel sounds and non-tender Palpation: soft Extremity normal to inspection General Extremety ED: Negative for edema or tenderness General Extremity: Negative for edema Neuro oriented x3, CN's II-XII intact bilaterally and no sensory deficits noted Sensorium / Orientation: alert Motor Exam: strength 5/5 throughout Psych mental status grossly normal Skin Skin Narrative: There is diffuse patchy urticarial rash noted. There are no vesicles or pustules noted. There are no petechia noted. There is no involvement of the mucous membranes. MDM MDM MDM Narrative Medical decision making narrative: Patient took 50 mg of Benadryl prior to arrival. Patient was given Solu-Medrol and Pepcid here. Patient feels better on reevaluation. Patient was instructed to stop taking the Cipro. Patient was given a prescription for Keflex. Patient was given a prescription for prednisone. Patient was instructed to take Benadryl as needed for any itching. Patient was instructed return if worse in any way. Patient understood and was agreeable with the plan. All questions were answered. Discharge Plan Triage Chief Complaint: Allergic Reaction ED Provider: Shay Montano Dx/Rx/DC Orders Clinical Impression: Allergic reaction Instructions: ED General Allergic Reactions Prescriptions: New prednisone 20 MG tablet 60 mg PO DAILY Qty: 12 RF: 0 cephalexin [cephalexin] 500 MG capsule 500 mg PO Q6 Qty: 12 RF: 0 Primary Care Provider: Magnolia Luna Referrals: Magnolia Luna DO [Primary Care Provider] - 5-7 Days Disposition Disposition: Home, Self Care
[2021-07-14] MEDS: MethylPREDNISolone 125 MG/2 ML Vial 80 MG IV (15:20)
[2021-07-14] MEDS: Famotidine 200 MG/20 ML MDV 20 MG in 0.9% Normal Saline (Pres. free 8 ML 300 MG IV (15:25)
[2021-07-14 15:52] VITALS: BP 135/97; PULSE 87; RESP 14; O2SAT 97
[2021-07-14 16:03] VITALS: PULSE 92; RESP 19; O2SAT 97
== END 2021-07-14 16:14 | disposition home or self-care (01) ==
PROVIDERS: Emergency Provider Emergency Medicine; PCP Internal Medicine; Visit Provider Emergency Medicine
DX: T78.40XA Allergy, unspecified, initial encounter (principal); R06.02 Shortness of breath; Z87.891 Personal history of nicotine dependence; X58.XXXA Exposure to other specified factors, initial encounter
CPT/HCPCS: 96374; 96375; 99282; A4216; J3490

== ENCOUNTER 2021-12-07 09:45 | Emergency (ER) | payer OTHER, SELFPAY ==
[2021-12-07 09:47] VITALS: BP 169/112; PULSE 93; RESP 16; TEMP 36.3; O2SAT 95; BMI 32.1
--- NOTE | 2021-12-07 09:58 | EX.ED.DYSGE1 ---
HPI <ANDREA Marte - Last Filed: 12/07/21 10:59> History of Present Illness Chief Complaint: Allergic Reaction Narrative Narrative: 41-year-old female with no stated medical history presents the emergency department for allergic reaction. Patient takes Cipro after intercourse to prevent any urinary tract infections. Patient has taken 3 doses and has had itching, redness to her ears, lip swelling every time. She believes it was something else however this morning she took it at 9 AM, did not take anything else and at 920 she developed symptoms. Patient denies any shortness of breath however states she does have full body itching, especially her palms and soles. Patient also has slight lip swelling, patient states he took 50 of Benadryl at home and this did improve. She denies any difficulty swallowing. Patient is here for evaluation [facility] <ANDREA Marte - Last Filed: 12/07/21 10:59> [facility] Medical History Diabetes History of cholecystitis Home Medications cephalexin 500 mg PO Q6 #12 capsule 07/14/21 [Rx Last Taken Unknown] prednisone 60 mg PO DAILY #12 tablet 07/14/21 [Rx Last Taken Unknown] epinephrine [EpiPen] 0.3 mg IM Q15M PRN #2 ea 12/07/21 [Rx Last Taken Unknown] nitrofurantoin monohyd/m-cryst [Macrobid] 100 mg PO PRN PRN #7 cap 12/07/21 [Rx Last Taken Unknown] prednisone 50 mg PO DAILY #4 tab 12/07/21 [Rx Last Taken Unknown] Allergy/AdvReac Type Severity Reaction Status Date / Time ciprofloxacin [From Cipro] Allergy Intermediate Itching, Verified 12/07/21 09:59 lip swelling Sulfa (Sulfonamide Allergy Rash Verified 12/07/21 09:47 Antibiotics) Surgical History History of appendectomy History of cholecystectomy Social History Smoking Status: Former smoker alcohol intake: never ROS <ANDREA Marte - Last Filed: 12/07/21 10:59> ROS ED ROS Narrative Constitutional: Negative for fever, chills, weight loss, weakness Eyes: Negative for vision loss, vision change, double vision ENT: Negative for any sore throat, ear pain, congestion. Positive for lip swelling Cardiovascular: Negative for any chest pain, tightness, palpitations Respiratory: Negative for any cough, sputum production, hemoptysis, dyspnea, dyspnea on exertion, orthopnea Gastrointestinal: Negative for any abdominal pain, nausea, vomiting, diarrhea, constipation, blood in stool, blood in vomit : Negative for any urinary frequency, dysuria, retention, blood in urine Muscle skeletal: Negative for any muscle joint pain, stiffness, myalgias, arthralgias, neck pain, back pain Neurological: Negative for any headache, syncope, numbness or tingling, dizziness Skin: Negative for any rashes, lumps, abrasions, lacerations. Positive for itching to the hands, feet, head Psychiatric: Negative for any depression, anxiety, stress, suicidal ideation, homicidal ideation Hematologic: Negative for any easy bruising, excessive bruising, easy bleeding Allergies: Negative for any eczema, hives, rash EXAM <ANDREA Marte - Last Filed: 12/07/21 10:59> Physical Exam Narrative Exam Narrative: Vital signs reviewed. Positive for itching, patient is in no distress. Patient's vital signs are stable HEET: Head normocephalic atraumatic, TMs clear bilaterally. Posterior pharynx is clear, moist mucous membranes. Nares clear bilaterally. Negative for any stridor, negative for any drooling. Patient speaking in full sentences. Neck: Supple with no lymphadenopathy or tenderness. No signs of meningismus, negative jolt sign. Cardiac: Regular rate and rhythm no murmurs gallops or rubs, equal peripheral pulses bilaterally. Respiratory: Lungs clear to auscultation bilaterally. No chest tenderness. Abdomen: Soft, nontender, nondistended. No abdominal bruit or pulsatile masses. No hepatosplenomegaly Extremities: No peripheral edema, no signs of gross trauma or deformity. Active full range of motion of all extremities. Patient's hands are red, soles are red, patient does complain of itching. Neuro: Cranial nerves II through XII intact, no focal neurological deficits. Skin: Clean dry and intact with no rash, purpura, petechiae, vesicles or pustules. Backs/flank: No CVA tenderness, no midline spinal tenderness, no deformity. Psych: Normal mood and affect. No SI, HI or acute psychosis. Const Vital Signs: 12/07/21 09:47 12/07/21 10:25 12/07/21 11:02 Temperature 97.3 F L Temperature Source Temporal Pulse Rate 93 92 84 Respiratory Rate 16 16 16 Blood Pressure 169/112 H 159/101 H 152/96 H Blood Pressure Mean 131 120 Pulse Ox 95 96 97 Oxygen Delivery Method Room Air Room Air Positive well nourished and well developed General Appearance ED: well developed <Dr. Margareth Coelho DO - Last Filed: 12/07/21 14:44> Physical Exam Const Vital Signs: 12/07/21 09:47 12/07/21 10:25 12/07/21 11:02 Temperature 97.3 F L Temperature Source Temporal Pulse Rate 93 92 84 Respiratory Rate 16 16 16 Blood Pressure 169/112 H 159/101 H 152/96 H Blood Pressure Mean 131 120 Pulse Ox 95 96 97 Oxygen Delivery Method Room Air Room Air MDM <ANDREA Marte - Last Filed: 12/07/21 10:59> [facility] Narrative Medical decision making narrative: Patient appears well, patient appears nontoxic, vital signs are stable. Patient presents the emergency department with allergic reaction secondary to Cipro. Patient did have some itching, slight lip redness, no angioedema, respiratory symptoms. Patient was watched for 1 hour, she was given Pepcid, prednisone, after 1 hour, she looked much better, felt much better was much more relaxed. Patient will stop the Cipro, patient replaced on Macrobid, she will also be given 4 more days of prednisone. She is instructed to follow-up with her PCP, and to return if any worsening symptoms. Patient stable for discharge <Dr. Margareth Coelho DO - Last Filed: 12/07/21 14:44> [facility] Narrative Medical decision making narrative: I have personally performed a face to face assessment of the patient and have reviewed the JANNETTE Note. I performed a substantive portion of the visit including all aspects of the following. My waterman findings include: History is patient is a 41-year-old female with history of frequent urinary tract infections currently on postcoital antibiotic prophylaxis with ciprofloxacin. She states she has taken this medication in the past and she recently was here for an allergic reaction but did not think it was from the Cipro. She took the Cipro about 30 minutes prior to arrival and then 15 minutes afterwards developed sensation of swelling in her mouth and itching on her hands and feet. She took 50 mg of Benadryl and then came to the emergency room for further evaluation. She currently denies any difficulty breathing, wheezing, or rash or GI symptoms. No other new exposures, foods or new medications. Exam is Patient is well-appearing but anxious. Normocephalic atraumatic. Moist mucosal membranes. No angioedema appreciated. Normal phonation. Oral mucosa is normal-appearing. Normal oropharynx. No stridor on exam. Lungs are clear to auscultation bilaterally with no wheezing. Heart regular rate and rhythm. Abdomen soft and nontender. Patient has some mild erythema of the palms of her hands however there is no edema of the hands appreciated. No urticaria or other rash appreciated. Normal neurologic exam with no focal neurologic deficits. Normal muscle tone throughout. Medical Decision Making Suspect patient is having an allergic reaction to the ciprofloxacin. She took Benadryl prior to arrival. This is not anaphylaxis and I do not think she requires epinephrine at this time. Is started on prednisone and Pepcid. We will continue take Benadryl as needed for symptoms. She is given a prescription for an EpiPen in case she has a more severe reaction at home. Patient is taken off her empiric Cipro and started on Keflex instead. She is encouraged to follow-up with her primary care doctor. Counseled return precautions. Patient discharged home in stable and improved condition. She is monitored for 1 hour and has no worsening allergic symptoms. Other additions or changes: [None] Discharge Plan Triage Chief Complaint: Allergic Reaction ED Midlevel Provider: Memo Cabezas ED Provider: Margareth Coelho Dx/Rx/DC Orders Clinical Impression: Allergic reaction Instructions: ED Allergic Reaction Local Other Prescriptions: New nitrofurantoin monohyd/m-cryst [Macrobid] 100 mg capsule 100 mg PO PRN PRN (Reason: Urinary tract infection) Qty: 7 RF: 0 prednisone 50 mg tablet 50 mg PO DAILY Qty: 4 RF: 0 epinephrine [EpiPen] 0.3 mg/0.3 mL auto-injector 0.3 mg IM Q15M PRN (Reason: anaphylaxis) Qty: 2 RF: 0 No Action prednisone 20 MG tablet 60 mg PO DAILY Qty: 12 RF: 0 cephalexin [cephalexin] 500 MG capsule 500 mg PO Q6 Qty: 12 RF: 0 Primary Care Provider: Magnolia Luna Referrals: Magnolia Luna DO [Primary Care Provider] - Activity Restrictions/Additional Instructions: Please try the Macrobid. Follow-up with your PCP Print Language: Ukrainian Disposition Disposition: Home, Self Care Discharge Date/Time: 12/07/21 11:04
[2021-12-07] MEDS: Famotidine 20 MG Tablet 40 MG PO (10:00)
[2021-12-07] MEDS: predniSONE 20 MG Tablet 60 MG PO (10:00)
[2021-12-07 10:25] VITALS: BP 159/101; PULSE 92; RESP 16; O2SAT 96
[2021-12-07 11:02] VITALS: BP 152/96; PULSE 84; RESP 16; O2SAT 97
== END 2021-12-07 11:04 | disposition home or self-care (01) ==
PROVIDERS: Emergency Provider Emergency Medicine; PCP Internal Medicine; Visit Provider Emergency Medicine
DX: L53.9 Erythematous condition, unspecified (principal); E11.9 Type 2 diabetes mellitus without complications; T36.8X5A Adverse effect of other systemic antibiotics, initial encounter; Z87.891 Personal history of nicotine dependence
CPT/HCPCS: 99283

== ENCOUNTER 2022-03-08 17:26 | Emergency (ER) | payer OTHER, SELFPAY ==
[2022-03-08 17:27] VITALS: BP 178/112; PULSE 91; RESP 20; TEMP 36.8; O2SAT 99; BMI 31.0
--- NOTE | 2022-03-08 18:10 | EKG12_ITS ---
Test Reason : CHEST TIGHTNESS Blood Pressure : / mmHG Vent. Rate : 096 BPM Atrial Rate : 096 BPM P-R Int : 128 ms QRS Dur : 084 ms QT Int : 358 ms P-R-T Axes : 047 045 062 degrees QTc Int : 452 ms Normal sinus rhythm with sinus arrhythmia Normal ECG Confirmed by JOVANA KING, ENRIQUE ([id number]), web editor EDSON PRABHAKAR ([id number]) on 03/10/2022 10:01:41 AM Referred By: PURA Confirmed By:JULIO WHALEY MD
--- NOTE | 2022-03-08 18:13 | EX.ED.DYSGE1 ---
HPI History of Present Illness Chief Complaint: Chest Pain Informant: patient Narrative Narrative: Patient states that she had a URI type symptoms at the beginning of January. She had runny nose sore throat. She had slight nonproductive cough. She saw her doctor in the middle of January. She was still having a little tightness in the chest. She was given a short course of prednisone which normally helps this. But she states it just did not do anything. She does have a history of occasional asthma but it is usually only when she is ill. She has not been hearing wheezing with this at this time. She just keeps getting a little tightness across her chest mostly when she is in air conditioning. She has an occasional dry cough. No syncope presyncope. No hemoptysis. She has no recent travel surgery immobilization personal or family history of DVT or PE. She is on no control or hormonal therapy. No leg pain or swelling. She contacted her physician who referred her in to see us today. She would not be able to be seen in the office till Sunday. [facility] Medical History Diabetes History of cholecystitis Home Medications cephalexin 500 mg capsule 500 mg PO Q6 #12 CAPSULES 07/14/21 [Rx Last Taken Unknown] prednisone 20 mg tablet 60 mg PO DAILY #12 TABLETS 07/14/21 [Rx Last Taken Unknown] epinephrine 0.3 mg/0.3 mL injection, auto-injector (EpiPen) 0.3 mg (0.3 mL) IM Q15M PRN anaphylaxis #2 ea 12/07/21 [Rx Last Taken Unknown] nitrofurantoin monohydrate/macrocrystals 100 mg capsule (Macrobid) 100 mg PO PRN PRN Urinary tract infection #7 caps 12/07/21 [Rx Last Taken Unknown] prednisone 50 mg tablet 50 mg PO DAILY #4 tabs 12/07/21 [Rx Last Taken Unknown] albuterol sulfate 2.5 mg/3 mL (0.083 %) solution for nebulization 2.5 mg (3 mL) inhalation Q4H PRN #25 vials 03/08/22 [Rx Last Taken Unknown] Allergy/AdvReac Type Severity Reaction Status Date / Time ciprofloxacin [From Cipro] Allergy Intermediate Itching, Verified 03/08/22 17:27 lip swelling Sulfa (Sulfonamide Allergy Rash Verified 03/08/22 17:27 Antibiotics) Surgical History History of appendectomy History of cholecystectomy Social History Smoking Status: Former smoker alcohol intake: never ROS ROS ED Constitutional Constitutional ED: Denies chills, fever(s) or subjective Eyes Eyes: Denies change in vision ENT ENT ED: Reports other Details: Sore throat and rhinorrhea are now gone. ; Denies rhinorrhea or sore throat Cardiovascular Cardiovascular: Reports other Details: Intermittent tight feeling across the chest. See history of present illness peer Respiratory/Chest Respiratory/Chest: Reports cough and dyspnea Gastrointestinal Gastrointestinal: Denies abdominal pain, nausea or vomiting Genitourinary Genitourinary ED: Denies dysuria Musculoskeletal Musculoskeletal: Denies arthralgias or myalgias Neurologic Neurologic: Denies weakness Psychiatric Psychiatric: Denies anxiety Endocrine Endocrinology: Denies polydipsia or polyuria Hematologic/Lymphatic Hematologic/Lymphatic: Denies easy bleeding, easy bruising or lymphadenopathy Allergic/Immunologic Allergic/Immunologic ED: Denies urticaria EXAM Physical Exam Const Vital Signs: 03/08/22 17:27 03/08/22 18:26 03/08/22 18:21 Temperature 98.2 F Temperature Source Temporal Pulse Rate 91 92 100 Respiratory Rate 20 H 14 16 Respiratory Effort Respiratory Depth Respiratory Pattern Normal Blood Pressure 178/112 H 138/78 H Blood Pressure Mean 134 98 Pulse Ox 99 98 Oxygen Delivery Method Room Air Room Air 03/08/22 18:21 Temperature Temperature Source Pulse Rate Respiratory Rate 16 Respiratory Effort Normal Short of Breath Respiratory Depth Normal Respiratory Pattern Normal Blood Pressure Blood Pressure Mean Pulse Ox 96 Oxygen Delivery Method Room Air Positive well nourished and well developed General Appearance ED: well developed and NAD; Negative for pallor HEENT Reports moist mucous membranes HEENT Narrative: No intraoral lesions. No exudate. Eyes General Eye ED: Negative for scleral icterus Neck supple and no JVD Neck Narrative: No stridor Chest Wall inspection of chest normal Resp normal respiratory effort and clear to auscultation bilaterally Resp Narrative: I do not hear any wheezes or rhonchi. Deep breaths do make a slight cough but no notable pain. Cardio regular rate and regular rhythm GI normal to inspection, nondistended, normoactive bowel sounds and non-tender Back/Spine no CVA tenderness Extremity normal to inspection General Extremety ED: Negative for edema or tenderness General Extremity: Negative for edema Neuro Sensorium / Orientation: alert Skin no rashes or lesions noted General Skin Exam: Negative for pallor MDM MDM MDM Narrative Medical decision making narrative: Patient is PERC negative and has a negative D-dimer. CBC was normal other than minimal elevation of white count. This might even be left over from the steroid burst she had. Electrolytes are normal. Troponins negative. is negative. Single view chest x-ray looked at by me shows no sign of infiltrate pneumothorax or mass. Patient's recheck. She felt that the breathing treatment helped her significantly. She has a nebulizer at home but has no meds for it. I will write for some meds for this and she will follow-up with her primary physician. She is good with this plan. Lab Data Attestation: I reviewed the patient's lab results. Labs: Laboratory Results - last 24 hr 03/08/22 03/08/22 03/08/22 18:20 18:20 18:20 WBC 11.6 H RBC 5.11 Hgb 15.7 H Hct 45.9 MCV 89.8 MCH 30.7 MCHC 34.2 RDW Std Deviation 38.3 RDW Coeff of Yoli 11.8 Plt Count 269 MPV 10.0 Immature Gran % (Auto) 0.300 Neut % (Auto) 65.4 Lymph % (Auto) 27.3 [place] % (Auto) 5.4 Eos % (Auto) 1.2 Baso % (Auto) 0.4 Absolute Neuts (auto) 7.6 Absolute Lymphs (auto) 3.17 Nucleated RBC % 0 D-Dimer Quant (PE/DVT) 0.30 Sodium 139 Potassium 4.2 Chloride 105 Carbon Dioxide 26.0 Anion Gap 8 BUN 9 Creatinine 0.91 Estim Creat Clear Calc 62.01 Est GFR (MDRD) Af Amer 88 Est GFR (MDRD) Non-Af 73 BUN/Creatinine Ratio 9.9 L Glucose 106 Calcium 9.6 Troponin I High Sens 3 Serum , Qual 03/08/22 18:20 WBC RBC Hgb Hct MCV MCH MCHC RDW Std Deviation RDW Coeff of Yoli Plt Count MPV Immature Gran % (Auto) Neut % (Auto) Lymph % (Auto) [place] % (Auto) Eos % (Auto) Baso % (Auto) Absolute Neuts (auto) Absolute Lymphs (auto) Nucleated RBC % D-Dimer Quant (PE/DVT) Sodium Potassium Chloride Carbon Dioxide Anion Gap BUN Creatinine Estim Creat Clear Calc Est GFR (MDRD) Af Amer Est GFR (MDRD) Non-Af BUN/Creatinine Ratio Glucose Calcium Troponin I High Sens Serum , Qual NEGATIVE Discharge Plan Triage Chief Complaint: Chest Pain ED Provider: Mauricio Armenta Dx/Rx/DC Orders Clinical Impression: Bronchospasm Instructions: ED Bronchospasm (Adult) Prescriptions: New albuterol sulfate 2.5 mg /3 mL (0.083 %) solution for nebulization 2.5 mg inhalation Q4H PRN Qty: 25 2RF Rx Instructions: Use q4 hours and PRN for wheezing No Action prednisone 20 MG tablet 60 mg PO DAILY Qty: 12 0RF cephalexin [cephalexin] 500 MG capsule 500 mg PO Q6 Qty: 12 0RF nitrofurantoin monohyd/m-cryst [Macrobid] 100 mg capsule 100 mg PO PRN PRN (Reason: Urinary tract infection) Qty: 7 0RF Rx Instructions: Please take 1 capsule after sexual intercourse prednisone 50 mg tablet 50 mg PO DAILY Qty: 4 0RF epinephrine [EpiPen] 0.3 mg/0.3 mL auto-injector 0.3 mg IM Q15M PRN (Reason: anaphylaxis) Qty: 2 0RF Primary Care Provider: Magnolia Luna Referrals: Magnolia Luna DO [Primary Care Provider] - 3-5 Days Disposition Disposition: Home, Self Care
[2022-03-08 18:21] VITALS: PULSE 100; RESP 16; O2SAT 96
[2022-03-08] MEDS: Ipratropium/Albuterol Sulfate 3 ML AMPUL.NEB INHALATION (18:21)
[2022-03-08 18:26] VITALS: BP 138/78; PULSE 92; RESP 14; O2SAT 98
--- NOTE | 2022-03-08 18:27 | CPS ---
Pt. refuses Covid-19 PCR testing; Dr. Armenta notified
[2022-03-08 18:29] LABS: Absolute Lymphocyte Count 3.17 X10^3/uL (0.83-4.51); Absolute Neutrophil Count 7.6 X10^3/uL (2.0-7.7); Basophil# 0.05 X10^3/uL; Basophil% 0.4 % (0-1); Eosinophil# 0.14 X10^3/uL; Eosinophils% 1.2 % (0-5); Hematocrit 45.9 % (37-47); Hemoglobin 15.7 g/dL (12.0-15.0); Lymphocyte # 3.17 X10^3/ul (0.83-4.51); Lymphocyte % 27.3 % (19-41); Mean Corp Hgb Conc 34.2 g/dL (32-36); Mean Corpuscular Hgb 30.7 pg (27.0-32.0); Mean Corpuscular Volume 89.8 fL (81-99); Monocyte# 0.63 X10^3/uL; Monocyte% 5.4 % (0-10); NRBC Flagged by Analyzer 0 % (0-5); Neutrophil % 65.4 % (47-70); Platelet Count 269 K/mm3 (150-450); RBC Distribution Width CV 11.8 % (11.6-14.6); RBC Distribution Width SD 38.3 fl (35.1-43.9); Red Blood Count 5.11 M/mm3 (4.2-5.4); White Blood Count 11.6 K/mm3 (4.4-11.0)
[2022-03-08 18:52] LABS: Anion Gap 8 (5-15); BUN 9 mg/dL (7-18); BUN/Creat Ratio 9.9 RATIO (10-20); Calcium,Total 9.6 mg/dL (8.5-10.1); Chloride 105 mmol/L (98-107); Creatinine, Serum 0.91 mg/dL (0.55-1.02); EST Glomerular Filtration Rate 73 mL/min (>60); Est Glom Filt Rate - Afr Amer 88 mL/min (>60); Estimated Creatinine Clearance 62.01 ml/min; Glucose 106 mg/dL (74-106); Potassium 4.2 mmol/L (3.5-5.1); Sodium Level 139 mmol/L (136-145); Troponin-I HS 3 pg/mL (3.0-54.0)
--- NOTE | 2022-03-08 18:53 | RAD_ITS ---
STUDY: AP PORTABLE UPRIGHT CHEST X-RAY OF 1853 HOURS ON 03/08/2022 REASON FOR EXAM: 41-year-old female with cough and chest tightness. TECHNIQUE: A single view AP portable upright chest x-ray was performed per protocol. COMPARISON: 05/28/2019. FINDINGS: Normal osseous structures. No cardiomegaly or heart failure. No pulmonary infiltrates, atelectasis, effusion, or pulmonary mass lesions. No pneumonia, pneumonitis, bronchitis. No interval change since a previous study of 05/28/2019. RAD/Chest 1 View (Portable) IMPRESSION: 1. No active cardiopulmonary disease. 2. No interval change since the previous study of 05/28/2019. Electronically Signed: Emile Crystal MD at 20:40 EDT ,
[2022-03-08 18:55] LABS: Internal QC Validated? YES +Cl - CLEAR BKGD; Pregnancy, Serum, hCG Quali. NEGATIVE Negative
[2022-03-08 20:17] VITALS: BP 126/78; PULSE 78; RESP 16; TEMP 37.2; O2SAT 97
== END 2022-03-08 20:18 | disposition home or self-care (01) ==
PROVIDERS: Emergency Provider Emergency Medicine; PCP Internal Medicine; Visit Provider Emergency Medicine
DX: J98.01 Acute bronchospasm (principal); E11.9 Type 2 diabetes mellitus without complications; Z87.891 Personal history of nicotine dependence; Z87.19 Personal history of other diseases of the digestive system; Z79.52 Long term (current) use of systemic steroids
CPT/HCPCS: 71045; 80048; 84484; 84703; 85025; 85379; 93005; 94640; 99251; 99285; A4216; G0463

== ENCOUNTER → 2022-11-15 | Outpatient (CLI) | payer OTHER, SELFPAY ==
--- NOTE | 2022-11-15 13:03 | CT_ITS ---
STUDY: CT ABDOMEN AND PELVIS WITH AND WITHOUT CONTRAST REASON FOR EXAM: Female, 42 years old. pt having RLQ pain with blood in urine. -- pt having RLQ pain with blood in urine. RADIATION DOSAGE (If Supplied By Facility): CTDIvol = ( 19.90 ) mGy, DLP = ( 2106.98 ) mGycm TECHNIQUE: Transaxial images were obtained from the dome of the diaphragm to the symphysis pubis without oral contrast. IV 100mL Isovue-370 was administered. Sagittal and coronal images were reconstructed. Individualized dose optimization techniques were used for this CT. COMPARISON: None. FINDINGS: The visualized lung bases are unremarkable. The visualized portions of the heart are within normal limits. Normal liver. There are surgical clips in the gallbladder fossa consistent with a prior cholecystectomy. Normal spleen. Normal pancreas. Normal bilateral adrenal glands. Normal right kidney. Normal left kidney. Normal visualized stomach. Normal small intestine. Normal colon. There are surgical clips in the region of the appendix consistent with a prior appendectomy. Normal abdominal aorta. Normal inferior vena cava. Normal retroperitoneum. Normal urinary bladder. Follicles are seen in the right ovary. Normal abdominal wall. Disc space narrowing and degeneration at the L5-S1 level. Loss of the normal lumbar lordosis. CT/CT Abd/Pelvis W/WO Contrast IMPRESSION: No evidence of ureteral obstruction. Follicles are seen in the right ovary. Electronically Signed: Jones Christianson MD at 13:45 EDT ,
[2022-11-15 13:35] LABS: CREATININE FINGERSTICK 0.9 mg/dL (0.55-1.02); EGFR FINGERSTICK > 60.0000 mL/min (>60)
== END | disposition home or self-care (01) ==
LOC: CT 13:01
PROVIDERS: PCP Internal Medicine; Referring Provider Internal Medicine; Visit Provider Internal Medicine
DX: R10.9 Unspecified abdominal pain (principal)
CPT/HCPCS: 74178; Q9967

== ENCOUNTER → 2023-02-07 | Outpatient (CLI) | payer OTHER, SELFPAY ==
--- NOTE | 2023-02-07 15:38 | US_ITS ---
STUDY: ULTRASOUND OF THE FEMALE PELVIS - COMPLETE REASON FOR EXAM: Female, 42 years old patient having pelvic pain. LMP: January 21, 2023 TECHNIQUE: Transabdominal TECHNICAL QUALITY: Adequate. COMPARISON: None. FINDINGS: The uterus is anteverted and is in a midline position. The uterus measures 9.6 x 3.9 x 4.7 cm. Normal uterine cervix. The endometrium measures 4.3 mm in thickness, and is hyperechoic. There is no demonstrated endometrial mass. There is no demonstrated myometrial mass. I.U.D. - The patient does not have an I.U.D. The right ovary is visualized. The right ovary measures 3.2 x 2.0 x 2.3 cm. There is no right ovarian cyst or ovarian mass. There is no visualized right adnexal mass or complex lesion. There is normal arterial and normal venous vascularity. The left ovary is visualized. The left ovary measures 2.7 x 1.9 x 2.3 cm. There is no left ovarian cyst or ovarian mass. There is no visualized left adnexal mass or complex lesion. There is normal arterial and normal venous vascularity. There is no fluid in the cul-de-sac. The pre void volume of the bladder was 491 ml. Polycystic ovary disease: No. US/Pelvic (Non ) IMPRESSION: Normal sonographic appearance of the uterus and both ovaries. Electronically Signed: Anastasiia Tariq MD at 5:09 EDT ,
== END | disposition home or self-care (01) ==
LOC: US 15:34
PROVIDERS: PCP Internal Medicine; Referring Provider Internal Medicine; Visit Provider Internal Medicine
DX: R10.2 Pelvic and perineal pain (principal)
CPT/HCPCS: 76856

== ENCOUNTER 2023-06-15 10:30 | Outpatient (RCR) | payer OTHER, SELFPAY ==
--- NOTE | 2023-04-27 12:02 | HP.OTEVAL ---
Patient's Visit Information Visit Information Visit Information: SANJAY TRACY is a 42 year old F, referred to Occupational Therapy by KO LAMBERT, with a diagnosis of proximal phalx fx. Date of Evaluation: 04/26/23 Occupational Therapist: Charis Hernández, RAQUELR/Pamella, CHT Subjective Subjective: This 42 year old female was seen for OT eval dx of middle phalanx fx with pinning- pt. states DOI was 04/06/23. pt had sx on 04/13/23. pt arrives 1 week and 6 days s/p. pt is limited with all ADLs at this time and with newly healing structures - pins in place states difficulty with sleeping and use of right hand with ADLs- pt would like to return to her PLOF. Pain right rf: Current Pain Intensity: 4 Pain Intensity Range: 4 and 6 ROM MP: right RF 60 left +10/70 PIP: right RF -4/ 50 left +10/105 DIP: right RF 0/0Left 0/70 Quick DASH-Disab of Arm,Shoulder& Hand Quick DASH Score: 41.0700 Goals Goal:100% adherence to protocol: Yes Goal:ROM equal to unaffected hand: Yes Goal:Banner Painter/Pinch strength at least 75% of unaffected hand: Yes Comment: will not initiate strengthening until cleared by surgeon Goal:No pain with affected hand use: Yes Goal:Full use of affected hand in daily activities including work: Yes Rehabilitation General Assessment: pt arrives 1 week and 6 days s/p from pinning of right RF- pt in need of custom ulnar gutter orthosis for night use - pt demo limited ROM pain and newly healing structures limiting pts IND. with ADLs and IADLs. pt would benefit from skilled OT services 1-2x week to return pt to her PLOF. Today therapist flower. custom orthosis dr. bass, ed on use and precautions- ed pt on ROM ex- pt demo understanding and agree to POC. Rehabilitation Potential: Good Anticipated Interventions Anticipated Interventions: Early Active Motion, A/AAROM/PROM, Edema Control, Triggerpoint Release, Desensitization, Wound Care, Modalities, Orthoses, Joint Protection/Energy Conservation, Education re Diagnosis and Home Program Other Interventions: pin care Visit Plan Frequency: 1-2x /Week Duration: 6 Weeks TEXT: Thank you for the opportunity to evaluate your patient. For Medicare and Medicare HMO plans, please review the plan of care and approve it. It will need to be FAXED BACK to us at [phone] for Medicare purposes. Please let me know if there are questions or concerns regarding this plan of care. Physician Signature: Date:
--- NOTE | 2023-06-15 11:01 | HP.OTDCSUM ---
Discharge Summary D/C Summary: It has been my pleasure to treat SANJAY QUINTERO STILL under orders from KO LAMBERT, for the diagnosis of proximal phalx fx for a total of 7 visit(s). Please see the following information for a summary of their discharge status. Overall Improvement % Improvement: 70 Objective Objective/Function: right RF PIP ROM - pt demo functional ROM right news production assistant strength 25# pt demo function strength pt will continue with HEP to continue her recovery. pt demo understanding and agree with d/c Goals Patient Goals: Regain Strength, Decrease Pain, Improve Fine Motor Skills and Use Hand/Wrist/Arm Normally Again Goal:100% adherence to protocol: Yes Goal:ROM equal to unaffected hand: Yes Goal:Mechanical Test Technician/Pinch strength at least 75% of unaffected hand: Yes Goal:No pain with affected hand use: Yes Goal:Full use of affected hand in daily activities including work: Yes Plan Plan: cont ROM D/C Information Discharge Comments: Pt was seen in OT following a right RF pinning due to phalanx fx- pt had met OT goals and demo understanding to cont. with her HEP and a gradual return to her ADLs and IADls. d/c sentence: If there are questions or concerns regarding this patient's occupational therapy, please fell free to call me at [phone]. Thank you for the referral of this patient. Sincerely, Charis Hernández, OTR/L, CHT
== END 2023-06-15 19:00 | disposition home or self-care (01) ==
LOC: OT 10:30
PROVIDERS: PCP Internal Medicine; Referring Provider Internal Medicine
DX: S62.624D Displaced fracture of middle phalanx of right ring finger, subsequent encounter for fracture with routine healing (principal)
CPT/HCPCS: 97110; 97140; 97166; 97530